=== PATIENT | female | born 1970 | race Caucasian/White ===

== ENCOUNTER 2019-10-10 17:13 | Emergency (ER) | payer BC ==
[2019-10-10 17:36] VITALS: BP 128/64
--- NOTE | 2019-10-10 18:33 | UC ---
Ear Complaint HPI - HPI Summary HPI Summary: Pt states for the last month when she bends her head her right ear feels like she has water in it. Pt has been dizzy today and has had a headache on the right side of her head for 1 week. - History of Current Complaint Chief Complaint: UCGeneralIllness Stated Complaint: DIZZY,VEGA,EAR Time Seen by Provider: 10/10/19 18:31 Hx Obtained From: Patient Hx Last Menstrual Period: 10/02/18 Onset/Duration: Sudden Onset, Lasting Days Severity Initially: Moderate Severity Currently: Moderate Pain Intensity: 4 Associated Signs/Symptoms: Positive: URI Symptoms - Allergies/Home Medications Allergies/Adverse Reactions: Allergies Allergy/AdvReac Type Severity Reaction Status Date / Time gabapentin Allergy Unknown Verified 10/10/19 17:31 Reaction Details meloxicam Allergy Unknown Verified 10/10/19 17:31 Reaction Details PMH/Surg Hx/FS Hx/Imm Hx Previously Healthy: Yes - Surgical History Surgery Procedure, Year, and Place: Back surgery 2017 - Family History Known Family History: Positive: Hypertension - Social History Alcohol Use: None Substance Use Type: None Smoking Status (MU): Never Smoked Tobacco Review of Systems All Other Systems Reviewed And Are Negative: Yes ENT: Positive: Ear Ache Is Patient Immunocompromised?: No Physical Exam Appearance: Well-Appearing, Well-Nourished, Pain Distress Vital Signs: Initial Vital Signs Temp 97.6 F 10/10/19 17:32 Pulse 68 10/10/19 17:32 Resp 16 10/10/19 17:32 BP 128/64 10/10/19 17:32 Pulse Ox 100 10/10/19 17:32 Vital Signs Reviewed: Yes Eye Exam: Normal ENT: Positive: Pharynx normal, TMs normal - right TM has visible serous fluid behind TM Dental Exam: Normal Neck exam: Normal Respiratory Exam: Normal Cardiovascular Exam: Normal Abdominal Exam: Normal Bowel Sounds: Positive: Present Musculoskeletal Exam: Normal Neurological Exam: Normal Psychological Exam: Normal Skin Exam: Normal Ear Complaint Course/Dx - Course Course Of Treatment: hx obtained, exam performed ,meds reviewed, - Differential Dx/Diagnosis Differential Diagnosis/HQI/PQRI: Otitis Externa, Otitis Media, URI Provider Diagnosis: Right serous otitis media, Frontal sinusitis Discharge ED - Sign-Out/Discharge Documenting (check all that apply): Patient Departure All imaging exams completed and their final reports reviewed: No Studies - Discharge Plan Condition: Stable Disposition: HOME Prescriptions: Azithromyxin BREE (NF) [Z-Bree (Zithromax) 250 mg tabs #6] 2 tab PO .TODAY, THEN 1 DAILY #6 tab predniSONE [Prednisone 20 MG TAB] 40 mg PO DAILY #10 tablet Patient Education Materials: Serous Otitis Media (ED) Referrals: Emily Wood PA [Primary Care Provider] - Additional Instructions: 1. take the medication as prescribed. 2. INcrease fluids 3. warm compresses to right side of face and neck, gentle stretching of right side of neck 4. Ibuprofen and tylenol as needed for pain 5. Follow up if not improving in the next 7-10 days it will take a good three weeks for the fluid to completely leave the ear, you can do an over the counter flonase after the prednisone to hlep with this for 2 weeks. - Billing Disposition and Condition Condition: STABLE Disposition: Home - Attestation Statements Provider Attestation: Per institutional requirements, I have reviewed the chart, however, I was not consulted specifically or made aware of this patient by the midlevel provider. I did not personally evaluate, interact with , or disposition this patient.
== END 2019-10-10 18:47 | disposition home or self-care (01) ==
LOC: UCCORT 17:13
DX: H65.91 Unspecified nonsuppurative otitis media, right ear (principal); J32.1 Chronic frontal sinusitis; Z88.8 Allergy status to other drugs, medicaments and biological substances
CPT/HCPCS: 99212; G0463